=== PATIENT | male | born 1985 | race Caucasian/White ===

== ENCOUNTER 2018-05-09 10:56 | Outpatient (CLI) | payer MEDICARE, OTHER ==
[2018-05-09 11:22] LABS: MEAN CORPUSCULAR HEMOGLOBIN 30.6 pg (28.0-34.0); MONOCYTES % 4.7 % (0.0-11.0)
[2018-05-09 11:23] LABS: BASOPHILS % 0.5 (0.0-1.5); NEUTROPHILS # 5.3 # k/uL (1.4-7.7)
[2018-05-09 11:54] LABS: eGFR (Non-African) > 60
== END 2018-05-09 10:58 ==
LOC: LAB 10:56
PROVIDERS: ATTEND Psychiatry & Neurology Psychiatry
DX: Z79.899 Other long term (current) drug therapy (principal); Z51.81 Encounter for therapeutic drug level monitoring
CPT/HCPCS: 36415; 80053; 80061; 83036; 85025